=== PATIENT | male | born 1975 | race Caucasian/White ===

== ENCOUNTER 2023-11-27 07:27 | Emergency (ER) | payer OTHER, SELFPAY ==
[2023-11-27 07:29] VITALS: BP 162/99
--- NOTE | 2023-11-27 07:49 | ED.GENMED ---
History of Present Illness
General
Chief Complaint: Musculo-Skeletal Complaint
Source: patient
Exam Limitations: none
Time Seen by Provider: 11/27/23 07:41
Nursing documentation reviewed up to this point in time: agreed with
Travel History
Have you had any contact with someone who has COVID-19?: No
Do you have any symptoms of coronavirus? Fever > 100 degrees, chills, cough, shortness of breath, sore throat, loss of taste or smell, muscle aches, or headache?: No
History of Present Illness
History of Present Illness:
48-year-old male without significant past medical history presenting to the emergency department today with concerns of right-sided hip discomfort that felt like it 'popped out of place' and last night while dancing at a wedding. He claims that he
has not been able to walk since. He required a cane crawling. This morning symptoms were ongoing unable to ambulate which prompted her to come to the ER. Denies any numbness weakness denies any additional injuries. No specific trauma to the area.
Past History
Past History
ED Past Medical History: None
ED Past Surgical History: Other (septoplasty)
Social History
Tobacco: Non-smoker
Personal:
Living: with family
Employment: Employed
Review of Systems
Review of Systems
Allergies reviewed?: Yes
All Other Systems: ROS reviewed and negative except as documented in HPI and ROS
Phy Exam
Physical Exam
Physical Exam:
GENERAL: Alert , in no apparent distress
EYE: pupils equal and reactive
NECK: Supple, no significant adenopathy.
ENT: o/p clr, mmm.
CARDIAC: Regular rate and rhythm .
LUNGS: Clear breath sounds bilaterally, no acute respiratory distress, no wheezes/rales/rhonchi
ABDOMEN: Soft, without focal tenderness, no r/g, no cvat
NEUROLOGICAL: Alert and oriented, no focal neuro deficits
SKIN: Warm and dry, skin intact.
MUSCULOSKELETAL: Significant tender to palpation when palpating the right lateral hip region without overlying skin changes no redness or warmth no swelling. No leg length discrepancy with leg straightened. No edema, well perfused.
PSYCH: Normal and appropriate interaction.
Course
Orders/Labs/Results
Orders:
Orders
11/27/23 07:43
Hip, Right 2-3 Views [CR Hip - RT w/wo Pel 2-3 Vw*] Urgent
Comment:
Reason For Exam: right hip pain
Include a pelvis x-ray?: Yes
11/27/23 07:48
Ketorolac [Toradol] 30 mg IM NOW STA
11/27/23 09:52
CT Pelvis W/o Iv Contrast Urgent
Reason For Exam: right hip pain xray normal, cant walk
11/27/23 12:11
Crutches-Treatment ONCE
Walker [Treatment- Walker] ONCE
Vital Signs
Initial and Last Documented VS:
Initial Vital Signs
Temp Pulse Resp BP Pulse Ox
98.4 F 65 20 162/99 99
11/27/23 07:29 11/27/23 07:29 11/27/23 07:29 11/27/23 07:29 11/27/23 07:29
Last Documented Vital Signs
Temp Pulse Resp BP Pulse Ox
98.4 F 70 16 150/100 98
11/27/23 07:29 11/27/23 12:04 11/27/23 12:04 11/27/23 12:04 11/27/23 12:04
MDM/Problems Addressed
MDM/Problems Addressed:
48-year-old male presenting to the emergency department today with concerns of right-sided hip discomfort that occurred while dancing at a wedding last night. No specific trauma to the area. Unable to ambulate since. Significant discomfort any
movement of the hip and palpation to the hip. X-ray without evidence of fracture CT scan then obtained considering he has difficulty ambulating also no fracture. Patient with likely soft tissue injury was able to ambulate with the walker and will
follow-up closely with orthopedics as needed.
*Critical Care Note
Total Time (30-74mins, 75-104mins- exclusive of procedures): Not Applicable
ED Attending Note
-
Portions of this chart may have been created with voice recognition software.� Occasional wrong word or��sound alike� substitutions may have occurred due to the inherent limitations of voice recognition software.
Discharge Plan
Departure
Patient Disposition: Home (Routine Discharge)
Date of Disposition: 11/27/23
Time of Disposition: 12:14
Patient with high blood pressure during this ER visit?: No
Condition: Good
Covid-19: Not Applicable
Discharge Problem:
Hip sprain
Instructions: Hip Pain (DC)
Prescriptions:
New
oxycodone-acetaminophen [Percocet] 5-325 mg tablet
1 tab PO Q6H PRN (Reason: Pain) Qty: 7 0RF
No Action
No Current Medications
hydrocodone-acetaminophen [Vicodin] 1 EACH tablet
1 ea PO Q4HPRN PRN (Reason: pain) Qty: 15 0RF
Referrals:
Patti Fields I., DO [Active] - Follow up in 1 week
Jay Jay Kinney MD [Family Provider] -
Activity Restrictions/Additional Instructions:
You came to the emergency department today with concerns of hip discomfort. You had a CT scan and x-ray without signs of fracture. This is likely a soft tissue injury. Please rest and ice and follow-up closely with orthopedics for further
assessment. Return to the emergency department for any worsening, new or concerning symptoms.
Interventions
Interventions:
*Risk Screen - Suicide Last Done: 11/27/23 08:40
*General Assessment Last Done: 11/27/23 07:35
*Neglect/Abuse Screening Last Done: 11/27/23 08:40
ED- Fall Risk Assessment Last Done: 11/27/23 08:40
*ED COVID-19 Vaccine History Last Done: 11/27/23 07:35
ED-Musculoskeletal Assessment Last Done: 11/27/23 08:40
[2023-11-27] MEDS: TORADOL 30 MG IM (08:02)
[2023-11-27 12:04] VITALS: BP 150/100
[2023-11-27 13:12] VITALS: BP 126/74
== END 2023-11-27 13:15 | disposition home or self-care (01) ==
LOC: EMR 07:27
PROVIDERS: EMERGENCY PHYSICIAN Emergency Medicine; FAMILY PHYSICIAN Family Medicine
DX: S73.101A Unspecified sprain of right hip, initial encounter (principal); X58.XXXA Exposure to other specified factors, initial encounter
CPT/HCPCS: 99284; 96372; 72192; 73502